=== PATIENT | male | born 1990 | race Caucasian/White ===

== ENCOUNTER 2019-03-06 15:41 | Emergency (ER) | payer BC, OTHER ==
[2014-09-17 12:18] VITALS: Wt 68.0 kg
[~2019-03-06 15:41] MED LIST: CYC10 PO; DIA5 PO; IBUP-1618 PO; KET10 PO; LID5T TOP; LOR5 PO; LORA-1456 PO; MET16 PO; NAP250 PO; NO MEDS; ONDA4TAB97 PO; OXYC-865 PO; PER PO; PRED-1 PO; SERT25TA90 PO; TRAM-420 PO
--- NOTE | 2019-03-06 15:46 | ER Report ---
History and Physical Time Seen By MD: 15:41 HPI/ROS CHIEF COMPLAINT: Chest pain HISTORY OF PRESENT ILLNESS: This is a 28-year-old male who presents emergency department for chest pain. 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 He denies diaphoresis. The pain also extends from his left anterior chest into his left arm into his wrist however he states that the pain seems to originate in his wrist and move backwards. No visual disturbances, he states that he feels weaker on the left side and feels like his left foot and fingers were tingling. He denies cardiac history, no recent injuries, no long flights or car rides, he does have a history of diffuse myelitis. REVIEW OF SYSTEMS: Constitutional: No fever, no chills. Eyes: No discharge. ENT: No sore throat. Cardiovascular: As above. Respiratory: No cough, no shortness of breath. Gastrointestinal: As above. Genitourinary: No hematuria. Musculoskeletal: No back pain. Skin: No rashes. Neurological: As above. Allergies: Coded Allergies: No Known Drug Allergies (Verified , 03/06/19) Home Meds Active Scripts Lorazepam (ATIVAN) 1 Mg Tablet, 1 MG PO TID PRN for SEDATION, #15 Prov:JOSÉ MIGUEL GRANT DO 10/20/15 Reported Medications Lidocaine (Lidoderm 5%) 1 Ea Patch, 1 EA TOP QDAY PRN, 0 Refills ON FOR 12 HRS AND OFF FOR 12 HRS 01/25/10 Cyclobenzaprine Hcl (Flexeril) 10 Mg Tab, 10 MG PO PRN, 0 Refills 01/25/10 Discontinued Reported Medications Sertraline Hcl (SERTRALINE HCL) 25 Mg Tablet, 0.5 TAB PO PRN 02/09/14 Naproxen (Naprosyn) 250 Mg Tab, 250 MG PO Q6H PRN, 0 Refills 01/25/10 Discontinued Scripts Prednisone 10 Mg Tab (PREDNISONE 10 MG TAB) 10 Mg Tablet, 10 MG PO QDAY PRN for reduce inflammation, #9 2 tabs daily for 3 days 1 tab daily for 3 days Prov:JOSÉ MIGUEL GRANT DO 10/20/15 Ondansetron Hcl (ZOFRAN) 4 Mg Tablet, 4 MG PO Q6H PRN for NAUSEA/VOMITING, #15 Prov:JOSÉ MIGUEL GRANT DO 10/20/15 Past Medical/Surgical History The patient has a past medical and surgical history of diffuse myelitis, multiple concussions, asthma as a child, rib fracture, anxiety, depression, cystogram. Reviewed Nurses Notes: Yes Hx Smoking: Yes (HOOKA, VAP) Smoking Status: Light Tobacco Smoker Hx Substance Use Disorder: Yes Hx Alcohol Use: Yes Constitutional Vital Sign - Last 24 Hours 03/06/19 03/06/19 03/06/19 03/06/19 15:41 15:45 15:56 16:00 Temp 98.1 Pulse 72 72 82 Resp 27 16 10 B/P (MAP) 138/82 (100) 138/82 125/61 (82) Pulse Ox 93 94 O2 Delivery Room Air 03/06/19 03/06/19 03/06/19 03/06/19 16:11 16:26 16:30 16:41 Pulse 65 60 65 B/P (MAP) 114/88 (97) Pulse Ox 97 03/06/19 03/06/19 03/06/19 16:56 17:00 17:11 Pulse 66 57 B/P (MAP) 124/95 (105) Pulse Ox 95 95 Physical Exam General Appearance: The patient is alert, has no immediate need for airway protection and no signs of toxicity. Eyes: Pupils equal and round no pallor or injection. EOMs intact, no nystagmus. ENT, Mouth: Mucous membranes are dry. Respiratory: There are no retractions, lungs are clear to auscultation. Cardiovascular: Regular rate and rhythm. No murmurs, clicks or rubs. Gastrointestinal: Abdomen is soft and non tender, no masses, bowel sounds normal. Neurological: Alert and oriented 4. Moving all extremities. Following all commands. No focal neuro deficits. There is however slight weakness in the left upper extremity there is no pronator drift. Skin: Warm and dry, no rashes. Musculoskeletal: Neck is supple non tender. Extremities are nontender, nonswollen and have full range of motion. DIFFERENTIAL DIAGNOSIS: After history and physical exam differential diagnosis was considered for chest pain including but not limited to myocardial ischemia, pericarditis pulmonary embolus, chest wall pain, pleural inflammation and pulmonary infectious causes. Medical Decision Making Data Points Result Diagram: 03/06/19 1546 03/06/19 1546 Laboratory Hematology Test 03/06/19 15:46 White Blood Count 5.8 k/uL (4.5-11.0) Red Blood Count 5.40 M/uL (4.00-5.60) Hemoglobin 16.1 g/dL (14.0-18.0) Hematocrit 45.8 % (42.0-52.0) Mean Corpuscular Volume 84.8 fL (80.0-96.0) Mean Corpuscular Hemoglobin 29.9 pg (26.0-33.0) Mean Corpuscular Hemoglobin Concent 35.2 g/dL (32.0-36.0) Red Cell Distribution Width 12.6 % (11.5-14.5) Platelet Count 327 K/uL (150-450) Mean Platelet Volume 7.8 fL (7.2-11.1) Neutrophils (%) (Auto) 51.2 % (39.4-72.5) Lymphocytes (%) (Auto) 30.9 % (17.6-49.6) Monocytes (%) (Auto) 8.1 % (4.1-12.4) Eosinophils (%) (Auto) 8.4 % (0.4-6.7) H Basophils (%) (Auto) 1.4 % (0.3-1.4) Nucleated RBC Relative Count (auto) 0.4 /100WBC Neutrophils # (Auto) 3.0 K/uL (2.0-7.4) Lymphocytes # (Auto) 1.8 K/uL (1.3-3.6) Monocytes # (Auto) 0.5 K/uL (0.3-1.0) Eosinophils # (Auto) 0.5 K/uL (0.0-0.5) Basophils # (Auto) 0.1 K/uL (0.0-0.1) Nucleated RBC Absolute Count (auto) 0.02 K/uL Chemistry Test 03/06/19 15:46 Sodium Level 141 mmol/L (137-145) Potassium Level 3.2 mmol/L (3.5-5.0) Chloride Level 102 mmol/L (98-107) Carbon Dioxide Level 28 mmol/L (22-30) Blood Urea Nitrogen 8 mg/dl (9-21) Creatinine 0.90 mg/dl (0.66-1.25) Glomerular Filtration Rate Calc > 60.0 Random Glucose 84 mg/dl (75-110) Calcium Level 9.5 mg/dl (8.4-10.2) Total Bilirubin 0.6 mg/dl (0.2-1.3) Aspartate Amino Transf (AST/SGOT) 33 U/L (0-35) Alanine Aminotransferase (ALT/SGPT) 37 U/L (0-56) Alkaline Phosphatase 67 U/L (0-126) Troponin I < 0.012 ng/ml Total Protein 8.2 g/dl (6.3-8.2) Albumin 4.8 g/dl (3.5-5.0) Coagulation Test 03/06/19 15:46 D-Dimer Quantitative (PE/DVT) < 0.27 ug/ml (0-0.50) EKG/Imaging EKG Interpretation 12 lead EKG: Time of EKG 1542. Rhythm: Normal sinus rhythm, ventricular rate 75 bpm. [place]: normal QRS: normal ST segments: No ST depression or elevation identified. Imaging FACILITY: [facility] - [place] PATIENT NAME: Nicholas Vick : 1990 MR: [id number] V: [id number] EXAM DATE: ORDERING PHYSICIAN: KINGA TOUSSAINT TECHNOLOGIST: Location: [facility] - [place] Patient: Nicholas Vick : 1990 Visit/Account:[id number] Date of Sevice: 03/06/2019 CHEST PA LAT COMPARISON: None. HISTORY: Chest Pain , sharp left-sided chest pain beginning at 9:00 AM with left-sided numbness FINDINGS: CARDIAC/VASC: No cardiac silhouette abnormality or cardiomegaly. Unremarkable pulmonary vasculature. MEDIASTINUM: No visible mass or adenopathy. LUNGS/PLEURA: No pneumothorax. No significant pulmonary parenchymal abnormalities. No effusion or pleural thickening. BONES: No fracture or visible bony lesion. OTHER:Negative. IMPRESSION: No acute cardiopulmonary process or cause for chest pain identified. Report Dictated By: Michael Samaniego at 03/06/2019 4:26 PM Report E-Signed By: Michael Samaniego at 03/06/2019 4:26 PM WSN:[id number] ED Course/Re-evaluation Clinical Indication for ER IV: Hydration, IV Access ED Course Patient was admitted to room. A history and physical obtained. Differential diagnoses were considered. An IV was started a CBC, CMP were obtained 1 L normal saline bolus was given. EKG showing normal sinus rhythm. Lab studies unremarkable, negative troponin, negative d-dimer. Negative two-view chest x- ray. I did review the results with the patient and his family to bedside. Patient states he is feeling better,, the patient still has some reproducible left anterior chest pain into his left arm, as the chest pain began at 9 the morning, I did tell patient that the repeat troponin is not indicated this time. Patient expressed understanding, I did however tell patient follow-up with his primary care provider, this could be anxiety or stress-induced which we discussed. Patient had no other questions or concerns at this time and was discharged home. I did tell him to take Advil or Tylenol as needed for pain. He was agreeable with plan of care and discharged home. Decision to Disposition Date: Mar 06, 2019 Decision to Disposition Time: 17:08 Depart Departure Latest Vital Signs Vital Signs Date Time Temp Pulse Resp B/P (MAP) Pulse Ox O2 Delivery O2 Flow Rate FiO2 03/06/19 17:11 57 95 03/06/19 17:00 124/95 (105) 03/06/19 15:56 10 03/06/19 15:45 98.1 Room Air Impression: Primary Impression: Non-cardiac chest pain Additional Impression: Numbness and tingling in left hand Condition: Improved Disposition: HOME OR SELF-CARE Referrals: JOSHUA IGNACIO DO (PCP) 1 Week Patient Instructions: Chest Wall Pain (ED) Additional Instructions: No concerning findings on the laboratory studies, EKG or chest x-ray today. This could be stress induced, please relax tonight, if this is a recurrent concerned please follow-up with your primary care provider within one week for reevaluation. If you're pain continues, increases or if she has any other concerning symptoms please return to the ER immediately for reevaluation. Try Aspercreme with lidocaine, this may help with some of the discomfort tear chest. Be sure to drink plenty of water. Avoid caffeinated beverages. Get plenty of rest. Problem Qualifiers KINGA TOUSSAINT-BC Mar 06, 2019 15:46
[2019-03-06] MEDS ORDERED: NS(*) 0.9% 1000 ML BAG 1,000 ML IV ONE (16:05)
--- NOTE | 2019-03-06 16:10 | EKG ---
FACILITY: [facility] - [place] PATIENT NAME: LILIANA GRIFFITH : [id number] MR: [id number] V: [id number] EXAM DATE: ORDERING PHYSICIAN: KINGA TOUSSAINT TECHNOLOGIST: FARIDA Wang Reason : CP Blood Pressure : / mmHG Vent. Rate : 075 BPM Atrial Rate : 075 BPM P-R Int : 160 ms QRS Dur : 104 ms QT Int : 400 ms P-R-T Axes : 061 008 039 degrees QTc Int : 446 ms Normal sinus rhythm Normal ECG When compared with ECG of 20-OCT-2015 18:16, No significant change was found Confirmed by Stanislav Gibbs ([id number]) on 03/07/2019 7:15:57 AM Referred By: Confirmed By:Stanislav Venegas
[2019-03-06 16:14] LABS: PLATELET COUNT, AUTOMATED 327 K/uL (150-450)
--- NOTE | 2019-03-06 16:34 | RADIOLOGY IMAGING REPORT ---
[facility] PATIENT NAME: Nicholas Vick : 1990 MR: [id number] V: [id number] EXAM DATE: ORDERING PHYSICIAN: KINGA TOUSSAINT TECHNOLOGIST: Location: [facility] [place] Patient: Nicholas Vick : 1990 Visit/Account:[id number] Date of Sevice: 03/06/2019 CHEST PA LAT COMPARISON: None. HISTORY: Chest Pain , sharp left-sided chest pain beginning at 9:00 AM with left-sided numbness FINDINGS: CARDIAC/VASC: No cardiac silhouette abnormality or cardiomegaly. Unremarkable pulmonary vasculatu re. MEDIASTINUM: No visible mass or adenopathy. LUNGS/PLEURA: No pneumothorax. No significant pulmonary parenchymal abnormalities. No effusion or p leural thickening. BONES: No fracture or visible bony lesion. OTHER:Negative. IMPRESSION: No acute cardiopulmonary process or cause for chest pain identified. Report Dictated By: Michael Samaniego at 03/06/2019 4:26 PM Report E-Signed By: Michael Samaniego at 03/06/2019 4:26 PM WSN:[id number]
[2019-03-06 17:00] VITALS: BP 124/95
== END 2019-03-06 17:25 | disposition home or self-care (01) ==
LOC: ER 15:45
DX: R07.89 Other chest pain (principal); R20.0 Anesthesia of skin; R20.2 Paresthesia of skin; F32.9 Major depressive disorder, single episode, unspecified; F41.9 Anxiety disorder, unspecified; F17.210 Nicotine dependence, cigarettes, uncomplicated; Z79.899 Other long term (current) drug therapy
CPT/HCPCS: 71046; 84484; 85025; 85379; 93005; 96360; 99284; J7030; 82040; 82247; 82310; 82374; 82435; 82565; 82947; 84075; 84132; 84155; 84295; 84450; 84460; 84520